=== PATIENT | female | born 2005 | race African-American/Black ===

== ENCOUNTER 2025-09-05 02:35 | Emergency (ER) | payer OTHER, SELFPAY ==
[2025-09-05 03:03] LABS: Glucose, Urine (Dipstick) Normal (Negative); Leukocyte Negative (Negative); Protein, Urine (Dipstick) 15 mg/dl (Neg-Trace); Specific Gravity, Urine 1.010 (1.005-1.030)
[2025-09-05] MEDS ORDERED: Ibuprofen 200 MG TAB ONE (03:03)
[2025-09-05 03:06] LABS: Pregnancy Test - Urine (BHCG) Negative (Negative); Pregu Control Bar Appear? YES (CONTROL BAR)
[2025-09-05 03:07] LABS: Pregu Control Background? CLEAR/WHITE (CLR/WHITE)
[2025-09-05 03:09] LABS: Bacteria/HPF 1+ HPF (None Seen); CAUTI Indications for Culture Pelvic or flank pain; RBC/HPF None Seen HPF (0-3); WBC/HPF 0-3 HPF (0-3)
[2025-09-05 03:10] LABS: Urine Culture Reflex No No
== END 2025-09-05 03:28 | disposition home or self-care (01) ==
LOC: CSHERS 02:35
DX: M54.50 Low back pain, unspecified (principal)
CPT/HCPCS: 81001; 81025; 99283